=== PATIENT | female | born 1975 | race Caucasian/White ===

== ENCOUNTER 2017-07-13 13:00 | Emergency (ER) | payer BC, OTHER ==
[2017-07-13 13:26] VITALS: TEMP 99.2
[2017-07-13] MEDS ORDERED: KETOROLAC TROMETHAMINE INJ 60 MG/2 ML VIAL IM ONE (13:46)
[2017-07-13] MEDS ORDERED: CYCLOBENZAPRINE HCL 10 MG TAB PO ONE (13:46)
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
[2017-07-13 13:58] VITALS: O2SAT 97
[2017-07-13 14:49] VITALS: BP 145/92
== END 2017-07-13 14:50 | disposition home or self-care (01) ==
LOC: ER 13:00
DX: S13.4XXA Sprain of ligaments of cervical spine, initial encounter (principal); V53.5XXA Driver of pick-up truck or van injured in collision with car, pick-up truck or van in traffic accident, initial encounter; Y92.410 Unspecified street and highway as the place of occurrence of the external cause

== ENCOUNTER → 2018-03-08 | Outpatient (CLI) | payer BC ==
--- NOTE | 2018-03-08 16:27 | RAD ---
Procedure: XR right SHOULDER 2 OR MORE VIEWS Exam Date: 03/08/2018 Ordering Provider: JUSTINE VALENTIN Clinical Indication: PAIN IN RIGHT SHOULDER Comparison: None Findings/impression: There is no acute fracture or dislocation. There are a few loose bodies in the subacromial/subdeltoid region. The acromioclavicular and glenohumeral joints are intact. No lytic or sclerotic lesions. Electronically signed by: Kulwinder Coleman MD 03/08/2018 4:26 PM CDT
== END ==
LOC: RAD 10:26
PROVIDERS: ATTEND Orthopaedic Surgery
DX: M25.511 Pain in right shoulder (principal)

== ENCOUNTER → 2018-06-18 | Outpatient (CLI) | payer BC ==
--- NOTE | 2018-06-18 16:08 | RAD ---
EXAM DESCRIPTION: Forearm,Right CLINICAL HISTORY: 43 years Female, PAIN IN RIGHT FOREARM COMPARISON: None. FINDINGS: No fracture or dislocation. Negative ulnar variance is incidentally noted. Prominent spurring at the coronoid process of the proximal ulna. No dislocation or elbow joint effusion. IMPRESSION: Negative for fracture or dislocation. Electronically signed by: Alexis Cuba MD 06/18/2018 4:07 PM CDT
--- NOTE | 2018-06-18 16:08 | RAD ---
EXAM DESCRIPTION: Forearm,Left CLINICAL HISTORY: 43 years Female, PAIN IN LEFT FOREARM COMPARISON: None. FINDINGS: Left forearm x-rays are negative for fracture or dislocation. Mild spurring is seen at the coronoid and olecranon processes of the proximal ulna. No displacement of distal humeral fat pads to suggest elbow joint effusion. Negative ulnar variance is incidentally noted. IMPRESSION: Negative for fracture. Electronically signed by: Alexis Cuba MD 06/18/2018 4:06 PM CDT
== END ==
LOC: RAD 15:15
PROVIDERS: ATTEND Nurse Practitioner Family
DX: M79.631 Pain in right forearm (principal); M79.632 Pain in left forearm

== ENCOUNTER → 2018-09-17 | Outpatient (CLI) | payer BC ==
--- NOTE | 2018-09-17 16:53 | MRI ---
EXAM DESCRIPTION: Shoulder,Right CLINICAL HISTORY: 43 years Female, ROTATOR CUFF SYNDROME COMPARISON: None. TECHNIQUE: Multiplanar multiecho imaging of the right shoulder was performed without gadolinium administration. FINDINGS: Acromion: Lateral downsloping is noted. Acromioclavicular joint: Moderate degenerative changes are noted. Rotator cuff: The subscapularis is intact. Bursal surface fraying of the supraspinatus and infraspinatus is noted with no tear or retraction. The teres minor is intact. Biceps: Normal Labrum: Circumferential blunting is noted. Glenohumeral joint: Normal Capsule: Normal Bone marrow: T2 hyperintensity and T1 hypointensity is noted throughout the shaft of the humerus Joint effusion: Trace joint fluid is noted. Additional findings: None IMPRESSION: 1. Moderate acromioclavicular joint osteoarthritis is noted. 2. Bursal surface fraying of the supraspinatus and infraspinatus. 3. Patchy areas of T2 hyperintensity and T1 hypointensity is noted throughout the shaft of the humerus. There is sparing of the epiphysis. Findings could represent sequelae of red marrow reconversion.Clinical correlation is recommended to exclude the possibility of marrow infiltration. Electronically signed by: Eugenia Godfrey MD 09/17/2018 4:52 PM SERVICE ENGINE REPAIRER
== END ==
LOC: MRI 13:00
PROVIDERS: ATTEND Orthopaedic Surgery
DX: M75.101 Unspecified rotator cuff tear or rupture of right shoulder, not specified as traumatic (principal); M19.011 Primary osteoarthritis, right shoulder

== ENCOUNTER → 2019-02-26 | Outpatient (CLI) | payer BC | LOC: GMATM 13:29 | PROVIDERS: ATTEND Nurse Practitioner Family | DX: N30.00 Acute cystitis without hematuria (principal) ==

== ENCOUNTER → 2019-07-11 | Outpatient (CLI) | payer BC | LOC: GMAL 11:41 | PROVIDERS: ATTEND Family Medicine | DX: D68.0 Von Willebrand disease (principal); E21.3 Hyperparathyroidism, unspecified ==

== ENCOUNTER → 2019-07-18 | Outpatient (CLI) | payer BC | LOC: LAB.O 12:30 | PROVIDERS: ATTEND Orthopaedic Surgery | DX: Z01.818 Encounter for other preprocedural examination (principal) ==

== ENCOUNTER 2019-08-12 05:32 | Day surgery (SDC) | payer BC ==
[2019-08-12] MEDS ORDERED: raNITIdine HCL INJ 25 MG/ML VIAL ONE (07:00)
[2019-08-12] MEDS ORDERED: DEXAMETHASONE INJ 10 MG/ML VIAL ONE (07:00)
[2019-08-12] MEDS ORDERED: diphenhydrAMINE HCL 50 MG/ML VIAL ONE (07:00)
[2019-08-12] MEDS ORDERED: MAGNESIUM SULFATE INJ 1 GM/2 ML VIAL ONE (07:00)
[2019-08-12] MEDS ORDERED: PROPOFOL 200 MG/20 ML VIAL IV ONE (07:00)
[2019-08-12] MEDS ORDERED: LIDOCAINE 1% 10 ML VIAL INJ ONE (07:00)
[2019-08-12] MEDS ORDERED: ceFAZolin SODIUM 1 GM VIAL ONE ×2 (07:13→07:51)
[2019-08-12] MEDS ORDERED: SODIUM CHL 0.9% 100ML MINI-BAG 100 ML IVPB ONE (07:13)
[2019-08-12] MEDS ORDERED: BUPIVACAINE 0.5% 30 ML VIAL INJ ONE (07:51)
[2019-08-12] MEDS ORDERED: BUPIVACAINE LIPOSOME 13.3 MG/ML VIAL INJ ONE ×2 (07:51→09:40)
[2019-08-12] MEDS ORDERED: VANCOMYCIN HCL INJ 1,000 MG VIAL IVPB ONE (07:51)
[2019-08-12] MEDS: LACTATED RINGERS 1,000 ML ONE (08:40)
[2019-08-12] MEDS ORDERED: MIDAZOLAM INJ 2 MG/2 ML VIAL ONE (09:39)
[2019-08-12] MEDS ORDERED: fentaNYL CITRATE INJ 50 MCG/ML AMP ONE (09:40)
[2019-08-12] MEDS ORDERED: ROCURONIUM BROMIDE 10 MG/ML VIAL ONE (09:40)
[2019-08-12] MEDS ORDERED: KETAMINE HCL 100 MG/ML VIAL ONE (10:03)
[2019-08-12] MEDS ORDERED: SUGAMMADEX SODIUM 200 MG/2 ML VIAL IV ONE (10:30)
[2019-08-12] MEDS: BUPIVACAINE 0.5% 30 ML VIAL INJ ONE (10:49)
[2019-08-12] MEDS: BUPIVACAINE LIPOSOME 13.3 MG/ML VIAL INJ ONE (10:49)
[2019-08-12] MEDS: ceFAZolin SODIUM 1 GM VIAL IRRIG ONE (11:02)
[2019-08-12] MEDS: VANCOMYCIN HCL INJ 1,000 MG VIAL IVPB ONE (11:03)
[2019-08-12] MEDS: HYDROcodone 5MG/APAP 325MG 1 EA TAB ONE (12:57)
[2019-08-12] MEDS: ONDANSETRON INJ 4 MG/2 ML VIAL ONE (13:30)
[2019-08-12 14:28] VITALS: BP 118/70; TEMP 97.6; O2SAT 94
--- NOTE | 2019-08-23 10:56 | OP ---
DATE OF PROCEDURE: 08/12/19 PREOPERATIVE DIAGNOSIS: 1. Impingement syndrome with advanced arthritis of the acromioclavicular joint. POSTOPERATIVE DIAGNOSIS: 1. Impingement syndrome with advanced arthritis of the acromioclavicular joint. PROCEDURE: 1. Subacromial decompression. 2. Distal clavicle resection. SURGEON: Jese Carnes MD. WATER CONSERVATION SPECIALIST: Hari Genao CST, SA-C. ANESTHESIA: General anesthesia. COMPLICATIONS: None. FINDINGS: 1. Hypertrophic bursitis. 2. Advanced arthritis of the acromioclavicular joint. INDICATION: Lala has a history of severe pain at the acromioclavicular joint. She has attempted multiple conservative measures, however, this has been ongoing for several months. Because of the ongoing nature of it and failure of conservative measures, she has requested operative intervention. After discussing the risks, benefits and alternatives to that, the patient has given informed consent for that. PROCEDURE: The patient was brought to the Operating Room and placed in the supine position. General anesthesia was induced and the patient was transitioned into the beach chair position. Following transitioning into the beach chair position, the arm and shoulder were sterilely prepped and draped. Following prepping and draping, the shoulder was approached with an incision at the lateral border of the acromion. Following the incision, dissection was carried down to the deltoid. A split was made between the anterior and middle heads of the deltoid. A bursectomy was performed, followed by an acromioplasty. The rotator cuff was identified and examined. There did not appear to be any tears within the rotator cuff. Attention was then focused on the acromioclavicular joint. Full thickness periosteal flaps were developed and the acromioclavicular joint was identified. The distal approximately 10 mm of the clavicle was resected. There was advanced arthritis at that area. Following that, care was taken to ensure complete removal of all bony debris. The area was very thoroughly irrigated and the periosteal flaps were closed. Following that, the wound again was thoroughly irrigated and the skin was closed with a combination of running and interrupted subcuticular stitches. Sterile dressing was placed. The patient was placed in a sling, awoken from anesthesia and taken to Recovery. POSTOPERATIVE PLAN: She will remain in the sling and followup with us in two days. We will start early range of motion for her. #[id number] MTDD
== END 2019-08-12 14:08 | disposition home or self-care (01) ==
LOC: AMB 05:32
PROVIDERS: ATTEND Orthopaedic Surgery
DX: M75.41 Impingement syndrome of right shoulder (principal); M13.811 Other specified arthritis, right shoulder; E89.2 Postprocedural hypoparathyroidism; Z90.710 Acquired absence of both cervix and uterus; Z79.899 Other long term (current) drug therapy
CPT/HCPCS: 01630; 23120; 23130; 36415; 80048; 80307; 81001; 85025; 85610; 85730; J0690; J1100; J1200; J2250; J2405; J2780; J3010; J3370; J3475; J3490; J7050; J7120

== ENCOUNTER → 2020-09-26 | Outpatient (CLI) | payer BC | LOC: LAB.O 08:07 | PROVIDERS: ATTEND Obstetrics & Gynecology | DX: Z01.419 Encounter for gynecological examination (general) (routine) without abnormal findings (principal) ==